=== PATIENT | female | born 1970 | race Caucasian/White ===

== ENCOUNTER 2022-06-09 02:35 | Emergency (ER) | payer BC ==
[2022-06-09] MEDS ORDERED: HYDROmorphone 0.5 MG/0.5 ML Syringe IVPUSH ONE (02:44)
[2022-06-09] MEDS ORDERED: Sodium Chloride 0.9% 10 ML Syringe FLUSH PRN (02:44)
[2022-06-09] MEDS ORDERED: Diphtheria,Pertussis(Acell),Tetanus Vaccine 0.5 ML Syringe IM ONE (04:10)
[2022-06-09] MEDS ORDERED: Methocarbamol 500 MG Tab PO ONE (04:15)
== END 2022-06-09 05:00 | disposition home or self-care (01) ==
LOC: JP.ED 02:35
DX: S81.812A Laceration without foreign body, left lower leg, initial encounter (principal); S16.1XXA Strain of muscle, fascia and tendon at neck level, initial encounter; S50.01XA Contusion of right elbow, initial encounter; S80.11XA Contusion of right lower leg, initial encounter; Z23 Encounter for immunization; Z79.899 Other long term (current) drug therapy; W10.8XXA Fall (on) (from) other stairs and steps, initial encounter
CPT/HCPCS: 12005; 70450; 72125; 73080; 73590; 90471; 90715; 96374; 99284; A9270; J1170; J3490